=== PATIENT | female | born 1995 | race African-American/Black ===

== ENCOUNTER 2018-06-13 13:25 | Emergency (ER) | payer MEDICAID ==
[~2018-06-13] VITALS: Ht 165.1 cm; Wt 106.8 kg
[2018-06-13 13:38] VITALS: Ht 165.1 cm; Wt 106.8 kg
[2018-06-13] MEDS ORDERED: VOLTAREN75 MG PO (15:57)
[2018-06-13] MEDS ORDERED: AMOXICILLIN500 M1 PO (15:57)
[2018-06-13 16:20] VITALS: BP 102/073
== END 2018-06-13 16:21 | disposition home or self-care (01) ==
LOC: D.ER 13:25
DX: K04.7 Periapical abscess without sinus (principal); K08.89 Other specified disorders of teeth and supporting structures